=== PATIENT | male | born 1965 | race Caucasian/White ===

== ENCOUNTER 2016-12-22 19:21 | Inpatient (IN) ==
[2016-12-22 19:53] LABS: Bilirubin,Urine Small (Negative); Blood,Urine Negative (Negative); Clarity,Urine Clear (Clear); Color,Urine Yellow (Yellow); Glucose,Urine (UA) Normal (Normal); Ketones,Urine Trace mg/dL (Negative); Leukocyte Esterase,Urine Negative (Negative); Nitrite,Urine Negative (Negative); Protein,Urine 30 mg/dL (Neg-Trace); Specific Gravity,Urine 1.025 (1.010-1.025); Urobilinogen,Urine Normal (Normal)
[2016-12-22 19:56] LABS: Bacteria,Urine None Seen per hpf (None-Few); Hyaline Casts,Urine Moderate per lpf (None-Few); Squamous Epithelial Cell,Urine Many per lpf (None-Few); WBC,Urine 0-3 per hpf (0-3)
[2016-12-22 20:43] LABS: Basophils # 0.1 K/mcL (0.0-0.2); Basophils % 0.6 %; Eosinophils # 0.2 K/mcL (0.0-0.6); Eosinophils % 1.6 %; Hematocrit 45.5 % (37.5-50.1); Hemoglobin 15.8 g/dL (12.9-16.9); Immature Granulocytes % 0.3 % (0-4); Lymphocytes # 1.5 K/mcL (0.6-4.6); Lymphocytes % 13.5 %; Mean Corpuscular HGB Conc 34.7 g/dL (31.6-35.5); Mean Corpuscular Hemoglobin 30.9 pg (28.0-33.3); Mean Platelet Volume 9.9 fL (9.4-12.4); Monocytes # 0.5 K/mcL (0.0-1.3); Monocytes % 4.4 %; Neutrophils # 8.6 K/mcL (1.6-8.9); Platelet Count 226 K/mcL (140-400); Red Blood Count 5.11 M/mcL (4.19-5.50); Red Cell Distribution Width 13.5 % (11.5-14.5); Segmented Neutrophils % 79.6 %
[2016-12-22] MEDS ORDERED: *HR* Morphine 2 MG/ML SYRINGE IV ONE (20:55)
[2016-12-22] MEDS ORDERED: Ondansetron 4 MG/2 ML VIAL IV ONE (20:55)
--- NOTE | 2016-12-22 20:55 | Emergency Department Note ---
Disposition Clinical Impression: Small bowel obstruction, Abdominal pain, Bradycardia Disposition: Admitted As Inpatient Condition: Good Referrals: NO,PCP [Non-Partnered Physician] - Forms: Work/School Release, ED Satisfaction Letter Time of Disposition: 22:26 Abdominal Pain HPI - General Chief Complaint: ED Abdominal Pain Stated Complaint: belly pain Time Seen by Provider: 12/22/16 20:52 Source: patient, EMS Mode of arrival: EMS Limitations: no limitations Nursing Notes Reviewed: Yes Vital Signs Reviewed: Yes - History of Present Illness HPI Narrative: This is a 51-year-old male who presents with left lower abdominal pain starting today. Patient had one episode of associated nausea and vomiting. Patient denies any diarrhea, bloody stools, or urinary symptoms. Patient's not having any chest pain or shortness of breath. Patient has had his gallbladder removed but no other abdominal surgeries. Pt Subjective Complaint: abdominal pain Onset (ago): hour(s) (started today) Pain Scale: 9 - Related Data Allergies Allergy/AdvReac Type Severity Reaction Status Date / Time No Known Allergies Allergy Verified 12/22/16 19:32 All systems ED: reviewed and negative except as stated. Constitutional: Denies: fever, chills, weakness, weight change Eyes: Denies: eye pain, eye discharge, vision change ENT ED: Denies: ear pain, throat pain, dental pain, hearing loss, epistaxis, congestion, dysphagia Cardiovascular: Denies: chest pain, palpitations, dyspnea on exertion, edema, syncope Respiratory: Denies: cough, dyspnea, wheezes, hemoptysis, stridor Gastrointestinal: Reports: abdominal pain, nausea, vomiting. Denies: diarrhea, constipation, hematemesis, melena, hematochezia Genitourinary: Denies: urgency, dysuria, frequency, hematuria Musculoskeletal: Denies: back pain, neck pain, arthralgia, myalgia Integumentary: Denies: rash, abrasion, lesions Neurological: Denies: headache, weakness, numbness, paresthesias, confusion, abnormal gait, vertigo Psychiatric: Denies: anxiety, depression, suicidal thoughts, homicidal thoughts , auditory hallucinations, visual hallucinations Endocrine: Denies: fatigue Hematological/Lymphatic: Denies: easy bleeding, easy bruising Allergic/Immunologic: Denies: facial swelling, urticaria Abdominal Pain PMH - Past Medical History Medical history: Reports: no medical history Male Surgical History: Reports: cholecystectomy, LE stent(s), other Psychiatric history: Reports: depression - Social History Smoking status: Current every day smoker Alcohol use: Reports: occasionally Drug use: Reports: none Physical Exam - General Limitations: no limitations General appearance: alert, in no apparent distress - Head Head exam: atraumatic, normocephalic, normal inspection - Eye Eye exam: Present: normal appearance, PERRL, EOMI - ENT ENT exam: normal exam, normal oropharynx, mucous membranes moist - Expanded ENT Exam External ear exam: Present: normal external inspection Mouth exam: Present: normal external inspection Teeth exam: Present: normal inspection Throat exam: Present: normal inspection - Neck Neck exam: Present: normal inspection, full ROM, trachea midline - Chest Chest inspection: Present: normal inspection, symmetric chest wall rise - Respiratory Respiratory exam: Present: normal lung sounds bilaterally - Cardiovascular Cardiovascular exam: Present: normal rhythm, bradycardia, normal heart sounds - Abdominal Exam Abdominal exam: Present: soft, tenderness. Absent: distention, guarding, rebound, rigidity Abdominal tenderness: Present: LLQ, moderate - Extremities Exam Extremities exam: Present: normal inspection, full ROM. Absent: tenderness, pedal edema - Expanded Upper Extremity Exam Shoulder exam: Present: normal inspection, full ROM Arm exam: Present: normal inspection, full ROM Elbow exam: Present: normal inspection, full ROM Forearm/Wrist exam: Present: normal inspection, full ROM Hand exam: Present: normal inspection, full ROM Vascular exam: Normal: capillary refill, radial pulse - Expanded Lower Extremity Exam Hip/Pelvis exam: Present: normal inspection, full ROM Upper leg exam: Present: normal inspection, full ROM Knee exam: Present: normal inspection, full ROM Lower leg exam: Present: normal inspection, full ROM Ankle exam: Present: normal inspection, full ROM Foot/toe exam: Present: normal inspection, full ROM Neurovascular/Tendon exam: Absent: motor deficit, sensory deficit, tendon deficit - Back Exam Back exam: Present: normal inspection, full ROM. Absent: tenderness - Neurological Exam Neurological exam: Present: alert, oriented X3 - Expanded Neurological Exam Patient oriented to: Present: person, place, time Coma Scale Eye Opening: Spontaneous Coma Scale Motor Response: Obeys Commands Coma Scale Verbal Response: Oriented Coma Scale Total: 15 - Psychiatric Psychiatric exam: Present: normal affect, normal mood - Skin Skin exam: Present: warm, dry, intact, normal color Course - Consultations Consultation #1: I spoke with Dr. Lamar he will admit the pt. Time: 22:32 Vital Signs Temperature 97.7 F 12/22/16 19:32 Pulse Rate 56 12/22/16 19:32 Respiratory Rate 20 12/22/16 19:32 Blood Pressure 156/85 12/22/16 19:32 O2 Sat by Pulse Oximetry 99 12/22/16 19:32 Temperature 97.7 F 12/22/16 19:32 Pulse Rate 53 12/22/16 21:44 Respiratory Rate 16 12/22/16 21:44 Blood Pressure 130/78 12/22/16 21:44 O2 Sat by Pulse Oximetry 99 12/22/16 21:44 Oxygen Delivery Oxygen Delivery Room Air Abdominal Pain - Medical Records Medical records reviewed: Yes I reviewed the patient's medical records. - Lab Data Lab results reviewed: Yes I reviewed the patient's lab results. Result diagrams: 12/22/16 20:39 12/22/16 20:39 Lab Results 12/22/16 12/22/16 12/22/16 Range/Units 19:45 20:39 20:39 WBC 10.8 (4.3-11.1) K/mcL RBC 5.11 (4.19-5.50) M/mcL Hgb 15.8 (12.9-16.9) g/dL Hct 45.5 (37.5-50.1) % MCV 89.0 (83.0-100.0) fL MCH 30.9 (28.0-33.3) pg MCHC 34.7 (31.6-35.5) g/dL RDW 13.5 (11.5-14.5) % Plt Count 226 (140-400) K/mcL MPV 9.9 (9.4-12.4) fL Immature Gran % 0.3 (0-4) % Seg Neutrophils % 79.6 % Lymphocytes % 13.5 % Monocytes % 4.4 % Eosinophils % 1.6 % Basophils % 0.6 % Neutrophils # 8.6 (1.6-8.9) K/mcL Lymphocytes # 1.5 (0.6-4.6) K/mcL Monocytes # 0.5 (0.0-1.3) K/mcL Eosinophils # 0.2 (0.0-0.6) K/mcL Basophils # 0.1 (0.0-0.2) K/mcL Sodium 140 (136-145) mEq/L Potassium 4.5 (3.5-4.5) mEq/L Chloride 106 (98-109) mEq/L Carbon Dioxide 20 (19-29) mEq/L BUN 13 (8-26) mg/dL Creatinine 1.16 (0.72-1.25) mg/dL Est GFR ( Amer) > 60 (> 60) Est GFR (Non-Af Amer) > 60 (> 60) BUN/Creatinine Ratio 11 (6-26) Glucose 105 H (70-99) mg/dL Calculated Osmolality 290 (280-300) Calcium 10.0 (8.6-10.8) mg/dL Total Bilirubin 0.6 (0.2-1.2) mg/dL Direct Bilirubin 0.2 (0.0-0.5) mg/dL Indirect Bilirubin 0.4 (0.0-1.2) mg/dL AST 33 (5-34) Units/L ALT 20 (0-55) Units/L Alkaline Phosphatase 72 (38-126) Units/L Serum Total Protein 8.0 (6.0-8.3) g/dL Albumin 4.3 (3.5-5.0) g/dL Globulin 3.7 H (2.4-3.5) g/dL Albumin/Globulin Ratio 1.2 (1.1-2.2) Amylase 76 (25-125) Units/L Lipase 30 (8-78) Units/L Urine Color Yellow (Yellow) Urine Clarity Clear (Clear) Urine pH 6.0 (5.0-8.0) pH Units Ur Specific [place] 1.025 (1.010-1.025) Urine Protein 30 H (Neg-Trace) mg/dL Urine Glucose (UA) Normal (Normal) mg/dL Urine Ketones Trace H (Negative) mg/dL Urine Blood Negative (Negative) Urine Nitrite Negative (Negative) Urine Bilirubin Small H (Negative) Urine Urobilinogen Normal (Normal) mg/dL Ur Leukocyte Esterase Negative (Negative) Urine Microscopic RBC 3-5 H (0-3) per hpf Urine Microscopic WBC 0-3 (0-3) per hpf Ur Squamous Epith Cells Many H (None-Few) per lpf Urine Bacteria None Seen (None-Few) per hpf Hyaline Casts Moderate H (None-Few) per lpf Ur Culture Indicated? NO (NO) - Radiology Data Radiology results reviewed: Yes I reviewed the patient's radiology results. - EKG Data EKG attestation: Yes I reviewed and interpreted this EKG. EKG shows normal: sinus rhythm Rate: bradycardia (49) Rhythm: NSR [place]/QRS: normal Interpretation: no acute changes, normal EKG
[2016-12-22 20:58] LABS: Alanine Aminotransferase 20 Units/L (0-55); Albumin 4.3 g/dL (3.5-5.0); Albumin/Globulin Ratio 1.2 (1.1-2.2); Alkaline Phosphatase 72 Units/L (38-126); Amylase 76 Units/L (25-125); Aspartate Amino Transferase 33 Units/L (5-34); BUN/Creatinine Ratio 11 (6-26); Bilirubin,Direct 0.2 mg/dL (0.0-0.5); Bilirubin,Indirect 0.4 mg/dL (0.0-1.2); Bilirubin,Total 0.6 mg/dL (0.2-1.2); Blood Urea Nitrogen 13 mg/dL (8-26); Carbon Dioxide 20 mEq/L (19-29); Chloride 106 mEq/L (98-109); Globulin 3.7 g/dL (2.4-3.5); Glucose 105 mg/dL (70-99); Lipase 30 Units/L (8-78); Osmolality,Calculated 290 (280-300); Potassium 4.5 mEq/L (3.5-4.5); Sodium 140 mEq/L (136-145); eGFR For African Americans > 60 (> 60); eGFR For Non-African Americans > 60 (> 60)
[2016-12-22] MEDS: 0.9 % Sodium Chloride 1,000 ML IV SCH (21:22)
[2016-12-23] MEDS: Ondansetron 4 MG/2 ML VIAL IVP PRN ×3 (02:14→15:31)
[2016-12-23] MEDS: *HR* HYDROmorphone (PF) 1 MG/ML SYRINGE IVP PRN ×6 (02:14→23:35)
[2016-12-23] MEDS: 0.9 % Sodium Chloride 1,000 ML IVC SCH ×3 (02:15→23:31)
[2016-12-23 06:04] LABS: Basophils % 0.4 %; Eosinophils % 0.2 %; Hematocrit 39.3 % (37.5-50.1); Immature Granulocytes % 0.3 % (0-4); Lymphocytes # 1.1 K/mcL (0.6-4.6); Lymphocytes % 11.7 %; Mean Corpuscular HGB Conc 35.6 g/dL (31.6-35.5); Mean Corpuscular Hemoglobin 31.3 pg (28.0-33.3); Mean Corpuscular Volume 87.9 fL (83.0-100.0); Mean Platelet Volume 10.3 fL (9.4-12.4); Monocytes # 0.3 K/mcL (0.0-1.3); Neutrophils # 8.1 K/mcL (1.6-8.9); Platelet Count 196 K/mcL (140-400); Red Blood Count 4.47 M/mcL (4.19-5.50); Red Cell Distribution Width 13.5 % (11.5-14.5); Segmented Neutrophils % 84.4 %
[2016-12-23 06:13] LABS: BUN/Creatinine Ratio 13 (6-26); Blood Urea Nitrogen 11 mg/dL (8-26); Calcium 9.1 mg/dL (8.6-10.8); Carbon Dioxide 21 mEq/L (19-29); Chloride 108 mEq/L (98-109); Glucose 112 mg/dL (70-99); Osmolality,Calculated 292 (280-300); Potassium 3.8 mEq/L (3.5-4.5); Sodium 141 mEq/L (136-145); eGFR For African Americans > 60 (> 60); eGFR For Non-African Americans > 60 (> 60)
--- NOTE | 2016-12-23 09:09 | General Surg History&Physical ---
<Bruce Donis - Last Filed: 12/24/16 10:03> Date of Encounter: 12/24/16 Time of Encounter: 08:40 Assessment and Plan (1) Small bowel obstruction Current Visit: Yes Status: Acute Concern for SBO on CT abdomen. Conservative measures at this time: NPO w/ bowel rest-- may have 300cc ice chips per shift Consider NG placement if continued emesis, continue zofran. Supportive care/pain control (2) Depression Current Visit: Yes Status: Chronic Patient notes depression since his 's passing approx 3 years ago. Reviewing outpatient records, appears was started on Prozac in Sep 2016. States not on any medication currently. (3) Malnutrition Current Visit: Yes Status: Chronic Likely secondary to depression, with poor appetite. Currently NPO with bowel rest. Will continue to observe and monitor. Nutrition consulted, recommending TPN if patient is unable to resume PO diet in the next few days. (4) HTN (hypertension) Current Visit: Yes Status: Chronic Hydralazine 10mg Q6H scheduled for hypertension. (5) HLD (hyperlipidemia) Current Visit: Yes Status: Chronic (6) PAD (peripheral artery disease) Current Visit: Yes Status: Chronic History of bilateral iliac stents in 2010. Patient on Plavix, currently held. On heparin for DVT prophylaxis. (7) Nicotine dependence Current Visit: Yes Status: Acute Nicotine patch daily. (8) DVT prophylaxis Current Visit: Yes Status: Acute heparin 5,000 Q12H for DVT prophylaxis History of Present Illness Chief complaint: abdominal pain HPI: Mr. Knox is a 51 year old male that presented to the ED for abdominal pain x 1 day with N/V just since presentation to the hospital. Last episode of emesis at 3AM today. Patient's last BM was diarrhea yesterday at 2pm. Patient states his pain in suprapubic, originally a 10/10 in severity and a sharp stabbing pain. Currently a 5/10 with pain medication. Patient denies any fevers chills, changes in appetite, dysuria. Past Med Surg Social Fam HX - Past Medical History Medical history: COPD, GERD, hyperlipidemia, hypertension, peripheral artery disease Psychiatric history: anxiety, depression - Past Surgical History Surgical History: cholecystectomy, vascular surgery (bilateral iliac stent placement 2010) - Social History Smoking Status: Current every day smoker Packs per day: 1 1/2 Smokeless Tobacco Status: No Alcohol use: occasionally (weekend) Drug use: none - Family History Mother Adopted: No Family Member Ethnicity: Non- Living Status: Age at : 55 Cause of : parkinsons Hx Family Respiratory Disorders: No Hx Family Cancer: No Hx Family GI Disorders: No Hx Family Genitourinary Disorders: No Hx Family Endocrine Disorder: No Hx Family Musculoskeletal Disorders: No (carpal tunnel) Hx Family Neuromuscular Disorders: Yes (parkinsons) Hx Family Neurologic Disorders: Yes (parkinsons) Hx Family HEENT Disorders: No Hx Family Reproductive Disorders: No Hx Family Psychosocial Disorders: No Hx Family Medical Disorders: No Medications and Allergies Atorvastatin [Lipitor] 40 mg PO HS 12/23/16 [History] Citalopram [CeleXA] 20 mg PO DAILY 12/23/16 [History] Clopidogrel [Plavix] 75 mg PO DAILY 12/23/16 [History] Lansoprazole [Prevacid] 30 mg PO DAILY 12/23/16 [History] Latanoprost [Xalatan] 1 drop OP QPM 12/23/16 [History] Lisinopril/Hydrochlorothiazide [Zestoretic 10-12.5 mg Tablet] 1 each PO DAILY [History] Metoprolol [Lopressor] 25 mg PO BID 12/23/16 [History] Timolol Maleate 0.25% 1 drop OP DAILY 12/23/16 [History] Tizanidine HCl [Tizanidine HCl] 4 mg PO HS PRN 12/23/16 [History] Allergies No Known Allergies Allergy (Verified 12/23/16 07:41) Review of Systems All systems PM: A 10-system review of systems was performed and is negative for pertinent findings except as documented above in the HPI. - Constitutional no chills, no fever(s), no weakness - EENT Eyes: left: decreased vision Nose, mouth and throat: no dysphagia, no neck pain, no sore throat - Cardiovascular no chest pain, no dyspnea, no edema, no syncope - Respiratory cough, no dyspnea - Gastrointestinal abdominal pain, diarrhea, nausea, vomiting - Genitourinary no dysuria, no flank pain - Musculoskeletal no numbness, no tingling - Integumentary no rash - Neurological no abnormal speech, no confusion, no weakness General Surgery Exam Initial Vital Signs Temp Pulse Resp BP Pulse Ox 97.7 F 56 20 156/85 99 12/22/16 19:32 12/22/16 19:32 12/22/16 19:32 12/22/16 19:32 12/22/16 19:32 - General physical appearance well developed, well nourished, no distress - Eyes other (exotropia of left eye), PERRL, normal ocular movement - ENT normal nares, normal mucosa, no congestion, atraumatic, normocephalic - Neck no masses, trachea midline, no lymphadectomy - Respiratory normal expansion, normal respiratory effort, clear to auscultation - Cardiovascular Cardiovascular exam: Present: RRR, 15, 16 - Abdomen Abdomen general surgery: Present: bowel sounds present (hypoactive), soft, non tender - Integumentary Integumentary general surgery: Present: warm and dry, no abnormal pigmentation - Neurologic Present: CN 2-12 grossly intact - Psychiatric Psychiatric general surgery: Present: appropriate, oriented to person, oriented to place, oriented to time, speech is normal, memory intact Results - Labs 12/24/16 05:40 12/24/16 05:40 Abnormal lab results MCHC 35.6 g/dL (31.6-35.5) H 12/23/16 05:00 Glucose 112 mg/dL (70-99) H 12/23/16 05:00 POC Glucose 120 (58-89) H 12/23/16 05:48 Globulin 3.7 g/dL (2.4-3.5) H 12/22/16 20:39 Urine Protein 30 mg/dL (Neg-Trace) H 12/22/16 19:45 Urine Ketones Trace mg/dL (Negative) H 12/22/16 19:45 Urine Bilirubin Small (Negative) H 12/22/16 19:45 Urine Microscopic RBC 3-5 per hpf (0-3) H 12/22/16 19:45 Ur Squamous Epith Cells Many per lpf (None-Few) H 12/22/16 19:45 Hyaline Casts Moderate per lpf (None-Few) H 12/22/16 19:45 Diabetes panel 12/23/16 Range/Units 05:00 Sodium 141 (136-145) mEq/L Potassium 3.8 (3.5-4.5) mEq/L Chloride 108 (98-109) mEq/L Carbon Dioxide 21 (19-29) mEq/L BUN 11 (8-26) mg/dL Creatinine 0.86 (0.72-1.25) mg/dL Glucose 112 H (70-99) mg/dL Calcium 9.1 (8.6-10.8) mg/dL Calcium panel 12/23/16 Range/Units 05:00 Calcium 9.1 (8.6-10.8) mg/dL Pituitary panel 12/23/16 Range/Units 05:00 Sodium 141 (136-145) mEq/L Potassium 3.8 (3.5-4.5) mEq/L Chloride 108 (98-109) mEq/L Carbon Dioxide 21 (19-29) mEq/L BUN 11 (8-26) mg/dL Creatinine 0.86 (0.72-1.25) mg/dL Glucose 112 H (70-99) mg/dL Calcium 9.1 (8.6-10.8) mg/dL Adrenal panel 12/23/16 Range/Units 05:00 Sodium 141 (136-145) mEq/L Potassium 3.8 (3.5-4.5) mEq/L Chloride 108 (98-109) mEq/L Carbon Dioxide 21 (19-29) mEq/L BUN 11 (8-26) mg/dL Creatinine 0.86 (0.72-1.25) mg/dL Glucose 112 H (70-99) mg/dL Calcium 9.1 (8.6-10.8) mg/dL All other labs normal. <Jose Lamar - Last Filed: 12/25/16 07:45> Date of Encounter: 12/23/16 Assessment and Plan (1) Abdominal pain Current Visit: Yes Status: Acute The assessment and plan as outlined above was discussed with the patient and/or family members who expressed understanding and agreement. All questions were answered. Nausea and vomitting with diffuse mild abdominal pain. CT demonstrates partial bowel obstruction with dilated proximal small bowel. Close observation and follow with hydration and physical examination Qualifiers: Abdominal location: generalized Qualified Code(s): R10.84 - Generalized abdominal pain History of Present Illness HPI: Mr. Knox is a 51 year old male Review of Systems All systems PM: A 10-system review of systems was performed and is negative for pertinent findings except as documented above in the HPI. General Surgery Exam Initial Vital Signs Temp Pulse Resp BP Pulse Ox 97.7 F 56 20 156/85 99 12/22/16 19:32 12/22/16 19:32 12/22/16 19:32 12/22/16 19:32 12/22/16 19:32 - General physical appearance well developed, well nourished, no distress - Respiratory normal expansion, normal respiratory effort, clear to percussion, clear to auscultation - Cardiovascular Cardiovascular exam: Present: RRR, 15, 16 - Abdomen Abdomen general surgery: Present: bowel sounds present, tender Abdominal Tenderness: Present: diffusely (mild) - Neurologic Present: CN 2-12 grossly intact, normal coordination, normal sensation - Psychiatric Psychiatric general surgery: Present: appropriate, oriented to person, oriented to place, oriented to time, speech is normal, memory intact Results - Labs 12/25/16 07:03 12/25/16 07:03 Abnormal lab results RBC 4.17 M/mcL (4.19-5.50) L 12/25/16 07:03 Hct 37.3 % (37.5-50.1) L 12/25/16 07:03 Carbon Dioxide 15 mEq/L (19-29) L 12/25/16 07:03 Calcium 8.5 mg/dL (8.6-10.8) L 12/25/16 07:03 Globulin 3.7 g/dL (2.4-3.5) H 12/22/16 20:39 Urine Protein 30 mg/dL (Neg-Trace) H 12/22/16 19:45 Urine Ketones Trace mg/dL (Negative) H 12/22/16 19:45 Urine Bilirubin Small (Negative) H 12/22/16 19:45 Urine Microscopic RBC 3-5 per hpf (0-3) H 12/22/16 19:45 Ur Squamous Epith Cells Many per lpf (None-Few) H 12/22/16 19:45 Hyaline Casts Moderate per lpf (None-Few) H 12/22/16 19:45 Diabetes panel 12/25/16 Range/Units 07:03 Sodium 137 (136-145) mEq/L Potassium 3.7 (3.5-4.5) mEq/L Chloride 108 (98-109) mEq/L Carbon Dioxide 15 L (19-29) mEq/L BUN 13 (8-26) mg/dL Creatinine 0.80 (0.72-1.25) mg/dL Glucose 78 (70-99) mg/dL Calcium 8.5 L (8.6-10.8) mg/dL Calcium panel 12/25/16 Range/Units 07:03 Calcium 8.5 L (8.6-10.8) mg/dL Pituitary panel 12/25/16 Range/Units 07:03 Sodium 137 (136-145) mEq/L Potassium 3.7 (3.5-4.5) mEq/L Chloride 108 (98-109) mEq/L Carbon Dioxide 15 L (19-29) mEq/L BUN 13 (8-26) mg/dL Creatinine 0.80 (0.72-1.25) mg/dL Glucose 78 (70-99) mg/dL Calcium 8.5 L (8.6-10.8) mg/dL Adrenal panel 12/25/16 Range/Units 07:03 Sodium 137 (136-145) mEq/L Potassium 3.7 (3.5-4.5) mEq/L Chloride 108 (98-109) mEq/L Carbon Dioxide 15 L (19-29) mEq/L BUN 13 (8-26) mg/dL Creatinine 0.80 (0.72-1.25) mg/dL Glucose 78 (70-99) mg/dL Calcium 8.5 L (8.6-10.8) mg/dL All other labs normal.
--- NOTE | 2016-12-23 11:19 | Electrocardiograph Report ---
[facility] Test Date: 2016-12-22 Pat Name: Juan F Knox Department: 105 Room: 3A44 Gender: M Stain Sprayer: EDWARD : 1965 Requested By: Miriam Hemphill Order Number: [id number] Reading MD: Merissa Gold Measurements Intervals [place] Rate: 49 P: 37 OR: 129 QRS: 5 QRSD: 103 T: 27 QT: 420 QTc: 390 Interpretive Statements SINUS BRADYCARDIA Electronically Signed On 12-23-16 11:18:25 EST by Merissa Gold
[2016-12-23] MEDS: Nicotine 14 MG PATCH.TD24 TD SCH (12:07)
[2016-12-23] MEDS: *HR* Heparin 5,000 UNIT/ML VIAL SQ SCH (17:13)
[2016-12-23] MEDS: 0.9 % Sodium Chloride 1,000 ML IV SCH (19:58)
[2016-12-24] MEDS: *HR* HYDROmorphone (PF) 1 MG/ML SYRINGE IVP PRN ×4 (03:34→21:06)
[2016-12-24] MEDS: *HR* Heparin 5,000 UNIT/ML VIAL SQ SCH ×2 (05:50→18:01)
[2016-12-24 06:01] LABS: Basophils % 0.3 %; Eosinophils % 0.1 %; Hematocrit 40.5 % (37.5-50.1); Immature Granulocytes % 0.5 % (0-4); Lymphocytes # 1.4 K/mcL (0.6-4.6); Lymphocytes % 9.5 %; Mean Corpuscular HGB Conc 34.6 g/dL (31.6-35.5); Mean Corpuscular Volume 89.6 fL (83.0-100.0); Mean Platelet Volume 10.1 fL (9.4-12.4); Monocytes # 0.8 K/mcL (0.0-1.3); Monocytes % 5.4 %; Neutrophils # 12.4 K/mcL (1.6-8.9); Platelet Count 194 K/mcL (140-400); Red Blood Count 4.52 M/mcL (4.19-5.50); Red Cell Distribution Width 13.8 % (11.5-14.5); Segmented Neutrophils % 84.2 %
[2016-12-24 06:17] LABS: BUN/Creatinine Ratio 17 (6-26); Blood Urea Nitrogen 15 mg/dL (8-26); Carbon Dioxide 18 mEq/L (19-29); Chloride 109 mEq/L (98-109); Glucose 84 mg/dL (70-99); Osmolality,Calculated 298 (280-300); Potassium 3.9 mEq/L (3.5-4.5); Sodium 144 mEq/L (136-145); eGFR For African Americans > 60 (> 60); eGFR For Non-African Americans > 60 (> 60)
[2016-12-24] MEDS: Nicotine 14 MG PATCH.TD24 TD SCH (07:51)
[2016-12-24] MEDS: Pantoprazole 40 MG VIAL IVP SCH (07:51)
[2016-12-24] MEDS: 0.9 % Sodium Chloride 1,000 ML IVC SCH ×2 (07:53→21:20)
--- NOTE | 2016-12-24 10:05 | General Surgery Progress Note ---
<Bruce Donis - Last Filed: 12/24/16 10:02> Date of Encounter: 12/24/16 Time of Encounter: 07:15 - Assessment and Plan (1) Small bowel obstruction Current Visit: Yes Status: Acute Concern for SBO on CT abdomen. Ordered small bowel follow through this AM. May advance diet based on small bowel study results. Conservative measures at this time: NPO w/ bowel rest-- may have 300cc ice chips per shift No further emesis, continue zofran prn Supportive care/pain control (2) Depression Current Visit: Yes Status: Chronic Patient notes depression since his 's passing approx 3 years ago. Reviewing outpatient records, appears was started on Prozac in Sep 2016. Not on any medication currently. Qualifiers: Depression Type: unspecified Qualified Code(s): F32.9 - Major depressive disorder, single episode, unspecified (3) Malnutrition Current Visit: Yes Status: Chronic Likely secondary to depression, with poor appetite, poor PO intake. Currently NPO with bowel rest. Will continue to observe and monitor. Nutrition consulted, recommending TPN if patient is unable to resume PO diet in the next few days. (4) HTN (hypertension) Current Visit: Yes Status: Chronic Hydralazine 10mg Q6H scheduled for hypertension. Qualifiers: Hypertension type: essential hypertension Qualified Code(s): I10 - Essential (primary) hypertension (5) HLD (hyperlipidemia) Current Visit: Yes Status: Chronic Qualifiers: Hyperlipidemia type: unspecified Qualified Code(s): E78.5 - Hyperlipidemia , unspecified (6) PAD (peripheral artery disease) Current Visit: Yes Status: Chronic History of bilateral iliac stents in 2010. Patient on Plavix, currently held. On heparin for DVT prophylaxis. (7) Nicotine dependence Current Visit: Yes Status: Acute Nicotine patch daily. (8) DVT prophylaxis Current Visit: Yes Status: Acute heparin 5,000 Q12H for DVT prophylaxis Subjective Patient reports: no new complaints, feels better, still having pain, pain is less, no flatus, no bowel movement, afebrile, other (no further vomiting) Objective Vital Signs - Last 8 Hours Temp Pulse Resp BP Pulse Ox 12/24/16 07:31 98.6 F 80 16 139/66 93 L 12/24/16 04:15 98.8 F 76 17 155/73 93 L Intake and Output 12/23/16 12/24/16 12/24/16 23:59 07:59 15:59 Intake Total 1120 / 1120 1000 / 1000 Output Total 300 / 300 200 / 200 Balance 820 / 820 800 / 800 Intake: IV Fluids 1000 / 1000 1000 / 1000 0.9 % Sodium Chloride 1, 1000 / 1000 1000 / 1000 000 ML @ 100 mls/hr IVC . Q10H [facility] Rx#:[id number] Oral 120 / 120 Output: Urine 300 / 300 200 / 200 Other: Meal NPO Weight 55.12 kg Blood Glucose* 94 83 Patient Weight 12/24/16 23:59 Weight 55.12 kg - General physical appearance well developed, no distress - Eyes other (exotropia of left eye), normal ocular movement - ENT normal mucosa, atraumatic, normocephalic - Neck Neck exam: trachea midline - Respiratory normal respiratory effort, clear to auscultation - Cardiovascular Cardiovascular exam: Present: RRR - Abdomen Abdomen: Present: bowel sounds present (high pitch, hypoactive), soft, non tender. Absent: distended, guarding - Integumentary no rash - Neurologic CN 2-12 grossly intact - Psychiatric oriented to time, oriented to person, oriented to place, speech is normal, memory intact - Labs 12/24/16 05:40 12/24/16 05:40 Diabetes panel 12/24/16 Range/Units 05:40 Sodium 144 (136-145) mEq/L Potassium 3.9 (3.5-4.5) mEq/L Chloride 109 (98-109) mEq/L Carbon Dioxide 18 L (19-29) mEq/L BUN 15 (8-26) mg/dL Creatinine 0.88 (0.72-1.25) mg/dL Glucose 84 (70-99) mg/dL Calcium 9.0 (8.6-10.8) mg/dL Calcium panel 12/24/16 Range/Units 05:40 Calcium 9.0 (8.6-10.8) mg/dL Pituitary panel 12/24/16 Range/Units 05:40 Sodium 144 (136-145) mEq/L Potassium 3.9 (3.5-4.5) mEq/L Chloride 109 (98-109) mEq/L Carbon Dioxide 18 L (19-29) mEq/L BUN 15 (8-26) mg/dL Creatinine 0.88 (0.72-1.25) mg/dL Glucose 84 (70-99) mg/dL Calcium 9.0 (8.6-10.8) mg/dL Adrenal panel 12/24/16 Range/Units 05:40 Sodium 144 (136-145) mEq/L Potassium 3.9 (3.5-4.5) mEq/L Chloride 109 (98-109) mEq/L Carbon Dioxide 18 L (19-29) mEq/L BUN 15 (8-26) mg/dL Creatinine 0.88 (0.72-1.25) mg/dL Glucose 84 (70-99) mg/dL Calcium 9.0 (8.6-10.8) mg/dL - VTE Documentation of Mechanical Device: Intermittent pneumatic compression device Consult Discharge Plan - Plan Referrals: Stephane Askew DO [Primary Care Provider] - <Jose Lamar - Last Filed: 12/25/16 12:32> Date of Encounter: 12/24/16 Time of Encounter: 07:15 - Assessment and Plan (1) Abdominal pain Current Visit: Yes Status: Acute Qualifiers: Qualified Code(s): R10.84 - Generalized abdominal pain Objective Vital Signs - Last 8 Hours Temp Pulse Resp BP Pulse Ox 12/25/16 10:00 98.6 F 71 15 175/80 95 12/25/16 06:42 98.4 F 76 14 141/70 94 L Intake and Output 12/24/16 12/25/16 12/25/16 23:59 07:59 15:59 Intake Total 639 / 639 325 / 325 0 / 0 Output Total 375 / 375 400 / 400 0 / 0 Balance 264 / 264 -75 / -75 0 / 0 Intake: IV Fluids 639 / 639 325 / 325 0.9 % Sodium Chloride 1, 639 / 639 325 / 325 000 ML @ 100 mls/hr IVC . Q10H [facility] Rx#:[id number] Oral 0 / 0 0 / 0 Output: Urine 375 / 375 400 / 400 0 / 0 Other: Meal NPO NPO NPO Breakfast Weight 56.08 kg Blood Glucose* 96 88 81 Patient Weight 12/25/16 23:59 Weight 56.08 kg - Labs 12/25/16 07:03 12/25/16 07:03 Diabetes panel 12/25/16 Range/Units 07:03 Sodium 137 (136-145) mEq/L Potassium 3.7 (3.5-4.5) mEq/L Chloride 108 (98-109) mEq/L Carbon Dioxide 15 L (19-29) mEq/L BUN 13 (8-26) mg/dL Creatinine 0.80 (0.72-1.25) mg/dL Glucose 78 (70-99) mg/dL Calcium 8.5 L (8.6-10.8) mg/dL Calcium panel 12/25/16 Range/Units 07:03 Calcium 8.5 L (8.6-10.8) mg/dL Pituitary panel 12/25/16 Range/Units 07:03 Sodium 137 (136-145) mEq/L Potassium 3.7 (3.5-4.5) mEq/L Chloride 108 (98-109) mEq/L Carbon Dioxide 15 L (19-29) mEq/L BUN 13 (8-26) mg/dL Creatinine 0.80 (0.72-1.25) mg/dL Glucose 78 (70-99) mg/dL Calcium 8.5 L (8.6-10.8) mg/dL Adrenal panel 12/25/16 Range/Units 07:03 Sodium 137 (136-145) mEq/L Potassium 3.7 (3.5-4.5) mEq/L Chloride 108 (98-109) mEq/L Carbon Dioxide 15 L (19-29) mEq/L BUN 13 (8-26) mg/dL Creatinine 0.80 (0.72-1.25) mg/dL Glucose 78 (70-99) mg/dL Calcium 8.5 L (8.6-10.8) mg/dL - Attending Attestation I examined this patient and my medical decision-making was reviewed with the KEYSMITH/PA/Advanced Practice Nurse/Resident Physician. I agree with the documented findings, disposition and treatment plan as described except to the extent set forth below. Jose Lamar MD
[2016-12-24] MEDS: Ondansetron 4 MG/2 ML VIAL IVP PRN (12:34)
[2016-12-24] MEDS: 0.9 % Sodium Chloride 1,000 ML IV SCH (21:04)
[2016-12-25] MEDS: 0.9 % Sodium Chloride 1,000 ML IVC SCH ×3 (00:16→21:37)
[2016-12-25] MEDS: *HR* HYDROmorphone (PF) 1 MG/ML SYRINGE IVP PRN ×3 (03:37→10:47)
[2016-12-25] MEDS: *HR* Heparin 5,000 UNIT/ML VIAL SQ SCH ×2 (05:48→18:42)
[2016-12-25 07:15] LABS: Basophils % 0.4 %; Eosinophils % 0.3 %; Hematocrit 37.3 % (37.5-50.1); Hemoglobin 13.2 g/dL (12.9-16.9); Immature Granulocytes % 0.4 % (0-4); Immature Platelets 2.5 % (1.1-6.1); Lymphocytes # 1.8 K/mcL (0.6-4.6); Lymphocytes % 16.7 %; Mean Corpuscular HGB Conc 35.4 g/dL (31.6-35.5); Mean Corpuscular Hemoglobin 31.7 pg (28.0-33.3); Mean Corpuscular Volume 89.4 fL (83.0-100.0); Mean Platelet Volume 9.8 fL (9.4-12.4); Monocytes # 0.6 K/mcL (0.0-1.3); Monocytes % 5.1 %; Neutrophils # 8.4 K/mcL (1.6-8.9); Platelet Count 188 K/mcL (140-400); Red Blood Count 4.17 M/mcL (4.19-5.50); Red Cell Distribution Width 13.9 % (11.5-14.5); Segmented Neutrophils % 77.1 %
[2016-12-25 07:27] LABS: BUN/Creatinine Ratio 16 (6-26); Blood Urea Nitrogen 13 mg/dL (8-26); Calcium 8.5 mg/dL (8.6-10.8); Carbon Dioxide 15 mEq/L (19-29); Chloride 108 mEq/L (98-109); Glucose 78 mg/dL (70-99); Osmolality,Calculated 283 (280-300); Potassium 3.7 mEq/L (3.5-4.5); Sodium 137 mEq/L (136-145); eGFR For African Americans > 60 (> 60); eGFR For Non-African Americans > 60 (> 60)
[2016-12-25] MEDS: Pantoprazole 40 MG VIAL IVP SCH (07:49)
[2016-12-25] MEDS: Nicotine 14 MG PATCH.TD24 TD SCH (07:54)
--- NOTE | 2016-12-25 12:27 | General Surgery Progress Note ---
<Bruce Donis - Last Filed: 12/25/16 14:50> Date of Encounter: 12/25/16 Time of Encounter: 07:10 - Assessment and Plan (1) Small bowel obstruction Current Visit: Yes Status: Acute Concern for SBO on CT abdomen. More likely enteritis. Small bowel follow through incomplete. Ordered KUB this AM, no bowel obstruction. Advance diet to clear liquids. Continue zofran prn Supportive care/pain control (2) Depression Current Visit: Yes Status: Chronic Patient notes depression since his 's passing approx 3 years ago. Reviewing outpatient records, appears was started on Prozac in Sep 2016. Not on any medication currently. Qualifiers: Depression Type: unspecified Qualified Code(s): F32.9 - Major depressive disorder, single episode, unspecified (3) Malnutrition Current Visit: Yes Status: Chronic Likely secondary to depression, with poor appetite, poor PO intake. Currently NPO with bowel rest. Will continue to observe and monitor. Nutrition consulted, recommending TPN if patient is unable to resume PO diet in the next few days. (4) HTN (hypertension) Current Visit: Yes Status: Chronic Hydralazine 10mg Q6H scheduled for hypertension. Qualifiers: Hypertension type: essential hypertension Qualified Code(s): I10 - Essential (primary) hypertension (5) HLD (hyperlipidemia) Current Visit: Yes Status: Chronic Qualifiers: Hyperlipidemia type: unspecified Qualified Code(s): E78.5 - Hyperlipidemia , unspecified (6) PAD (peripheral artery disease) Current Visit: Yes Status: Chronic History of bilateral iliac stents in 2010. Patient on Plavix, currently held. On heparin for DVT prophylaxis. (7) Nicotine dependence Current Visit: Yes Status: Acute Nicotine patch daily. (8) DVT prophylaxis Current Visit: Yes Status: Acute heparin 5,000 Q12H for DVT prophylaxis Subjective Patient reports: no flatus, no bowel movement, nausea, vomiting (episode of vomiting small bowl follow through), afebrile (max temp 99.7) Objective Vital Signs - Last 8 Hours Temp Pulse Resp BP Pulse Ox 12/25/16 10:00 98.6 F 71 15 175/80 95 12/25/16 06:42 98.4 F 76 14 141/70 94 L Intake and Output 12/24/16 12/25/16 12/25/16 23:59 07:59 15:59 Intake Total 639 / 639 325 / 325 0 / 0 Output Total 375 / 375 400 / 400 0 / 0 Balance 264 / 264 -75 / -75 0 / 0 Intake: IV Fluids 639 / 639 325 / 325 0.9 % Sodium Chloride 1, 639 / 639 325 / 325 000 ML @ 100 mls/hr IVC . Q10H [facility] Rx#:[id number] Oral 0 / 0 0 / 0 Output: Urine 375 / 375 400 / 400 0 / 0 Other: Meal NPO NPO NPO Breakfast Weight 56.08 kg Blood Glucose* 96 88 81 Patient Weight 12/25/16 23:59 Weight 56.08 kg - General physical appearance well developed, well nourished, no distress - Eyes normal ocular movement - ENT normal mucosa, atraumatic, normocephalic - Neck Neck exam: trachea midline - Respiratory normal respiratory effort, clear to auscultation - Cardiovascular Cardiovascular exam: Present: RRR - Abdomen Abdomen: Present: bowel sounds present, soft, tender - Integumentary no rash - Neurologic CN 2-12 grossly intact - Psychiatric oriented to time, oriented to person, oriented to place, speech is normal, memory intact (minimally diffuse tenderness) - Labs 12/25/16 07:03 12/25/16 07:03 Diabetes panel 12/25/16 Range/Units 07:03 Sodium 137 (136-145) mEq/L Potassium 3.7 (3.5-4.5) mEq/L Chloride 108 (98-109) mEq/L Carbon Dioxide 15 L (19-29) mEq/L BUN 13 (8-26) mg/dL Creatinine 0.80 (0.72-1.25) mg/dL Glucose 78 (70-99) mg/dL Calcium 8.5 L (8.6-10.8) mg/dL Calcium panel 12/25/16 Range/Units 07:03 Calcium 8.5 L (8.6-10.8) mg/dL Pituitary panel 12/25/16 Range/Units 07:03 Sodium 137 (136-145) mEq/L Potassium 3.7 (3.5-4.5) mEq/L Chloride 108 (98-109) mEq/L Carbon Dioxide 15 L (19-29) mEq/L BUN 13 (8-26) mg/dL Creatinine 0.80 (0.72-1.25) mg/dL Glucose 78 (70-99) mg/dL Calcium 8.5 L (8.6-10.8) mg/dL Adrenal panel 12/25/16 Range/Units 07:03 Sodium 137 (136-145) mEq/L Potassium 3.7 (3.5-4.5) mEq/L Chloride 108 (98-109) mEq/L Carbon Dioxide 15 L (19-29) mEq/L BUN 13 (8-26) mg/dL Creatinine 0.80 (0.72-1.25) mg/dL Glucose 78 (70-99) mg/dL Calcium 8.5 L (8.6-10.8) mg/dL - VTE Documentation of Mechanical Device: Intermittent pneumatic compression device Consult Discharge Plan - Plan Referrals: Stephane Askew DO [Primary Care Provider] - <Jose Lamar - Last Filed: 12/25/16 16:37> Date of Encounter: 12/25/16 - Assessment and Plan (1) Abdominal pain Current Visit: Yes Status: Acute Qualifiers: Abdominal location: generalized Qualified Code(s): R10.84 - Generalized abdominal pain Objective Vital Signs - Last 8 Hours Temp Pulse Resp BP Pulse Ox 12/25/16 15:21 97.6 F 87 18 125/59 96 12/25/16 13:53 97.6 F 88 14 153/71 94 L 12/25/16 10:00 98.6 F 71 15 175/80 95 Intake and Output 12/25/16 12/25/16 12/25/16 07:59 15:59 23:59 Intake Total 325 / 325 1750 / 1750 Output Total 400 / 400 350 / 350 Balance -75 / -75 1400 / 1400 Intake: IV Fluids 325 / 325 1000 / 1000 0.9 % Sodium Chloride 1, 325 / 325 1000 / 1000 000 ML @ 100 mls/hr IVC . Q10H [facility] Rx#:[id number] Oral 0 / 0 750 / 750 Output: Urine 400 / 400 350 / 350 Other: Meal NPO Lunch Percent of Meal Consumed 100% Weight 56.08 kg Blood Glucose* 88 81 Patient Weight 12/25/16 23:59 Weight 56.08 kg - Labs 12/25/16 07:03 12/25/16 07:03 Diabetes panel 12/25/16 Range/Units 07:03 Sodium 137 (136-145) mEq/L Potassium 3.7 (3.5-4.5) mEq/L Chloride 108 (98-109) mEq/L Carbon Dioxide 15 L (19-29) mEq/L BUN 13 (8-26) mg/dL Creatinine 0.80 (0.72-1.25) mg/dL Glucose 78 (70-99) mg/dL Calcium 8.5 L (8.6-10.8) mg/dL Calcium panel 12/25/16 Range/Units 07:03 Calcium 8.5 L (8.6-10.8) mg/dL Pituitary panel 12/25/16 Range/Units 07:03 Sodium 137 (136-145) mEq/L Potassium 3.7 (3.5-4.5) mEq/L Chloride 108 (98-109) mEq/L Carbon Dioxide 15 L (19-29) mEq/L BUN 13 (8-26) mg/dL Creatinine 0.80 (0.72-1.25) mg/dL Glucose 78 (70-99) mg/dL Calcium 8.5 L (8.6-10.8) mg/dL Adrenal panel 12/25/16 Range/Units 07:03 Sodium 137 (136-145) mEq/L Potassium 3.7 (3.5-4.5) mEq/L Chloride 108 (98-109) mEq/L Carbon Dioxide 15 L (19-29) mEq/L BUN 13 (8-26) mg/dL Creatinine 0.80 (0.72-1.25) mg/dL Glucose 78 (70-99) mg/dL Calcium 8.5 L (8.6-10.8) mg/dL - Attending Attestation I examined this patient and my medical decision-making was reviewed with the OCCUPATIONAL NURSE/PA/Advanced Practice Nurse/Resident Physician. I agree with the documented findings, disposition and treatment plan as described except to the extent set forth below. Jose Lamar MD FACS
[2016-12-25] MEDS: 0.9 % Sodium Chloride 1,000 ML IV SCH (19:37)
[2016-12-26] MEDS: *HR* Heparin 5,000 UNIT/ML VIAL SQ SCH (06:22)
[2016-12-26] MEDS: 0.9 % Sodium Chloride 1,000 ML IVC SCH (08:18)
[2016-12-26] MEDS: Pantoprazole 40 MG VIAL IVP SCH (08:18)
[2016-12-26] MEDS: Nicotine 14 MG PATCH.TD24 TD SCH (08:18)
[2016-12-26 11:15] VITALS: BP 140/73
--- NOTE | 2016-12-26 14:52 | Discharge Summary ---
<Lissett Clinton Laurent - Last Filed: 12/26/16 14:52> Date of Encounter: 12/26/16 Time of Encounter: 14:45 - Discharge Diagnosis (1) Small bowel obstruction Priority: Primary Status: Resolved (2) Malnutrition Priority: Secondary Status: Chronic - Discharge Medications Home Medications: Atorvastatin [Lipitor] 40 mg PO HS 12/23/16 [History] Citalopram [CeleXA] 20 mg PO DAILY 12/23/16 [History] Clopidogrel [Plavix] 75 mg PO DAILY 12/23/16 [History] Lansoprazole [Prevacid] 30 mg PO DAILY 12/23/16 [History] Latanoprost [Xalatan] 1 drop OP QPM 12/23/16 [History] Lisinopril/Hydrochlorothiazide [Zestoretic 10-12.5 mg Tablet] 1 each PO DAILY [History] Metoprolol [Lopressor] 25 mg PO BID 12/23/16 [History] Timolol Maleate 0.25% 1 drop OP DAILY 12/23/16 [History] Tizanidine HCl 4 mg PO HS PRN 12/23/16 [History] Allergies/Adverse Reactions: Allergies No Known Allergies Allergy (Verified 12/23/16 07:41) General Surgery Exam Initial Vital Signs Temp Pulse Resp BP Pulse Ox 97.7 F 56 20 156/85 99 12/22/16 19:32 12/22/16 19:32 12/22/16 19:32 12/22/16 19:32 12/22/16 19:32 - General physical appearance well developed, no distress - Eyes normal ocular movement - ENT normal mucosa, atraumatic, normocephalic - Neck trachea midline - Respiratory normal respiratory effort, clear to auscultation - Cardiovascular Cardiovascular exam: Present: RRR - Abdomen Abdomen general surgery: Present: bowel sounds present, soft, non tender - Integumentary Integumentary general surgery: Present: warm and dry - Neurologic Present: CN 2-12 grossly intact - Psychiatric Psychiatric general surgery: Present: A&Ox3 Date of admission: 12/22/16 22:47 Primary care physician: Boogie Chen Consults: 12/23/16 00:34 Consult to Nutrition [CONS] Routine Comment: Consulting Provider: NUTRITION Reason for Dietary Consult: MST Score Discharging clinician: Jose Lamar ([facility]) Anticipated date of discharge: 12/26/16 - Patient Status Disposition: Home, Self-Care Condition: Good Functional capacity at discharge: independent ambulation Overall status at discharge: patient is progressing back to baseline - Discharge Instructions Instructions: Bowel Obstruction (DC) Follow Up With: Stephane Askew DO [Primary Care Provider] - 01/05/17 12:00 pm (1 week hospital follow-up) - Diet and Activity Activity: increase activity as tolerated Diet: advance to your usual diet - Hospital Course Hospital course: Mr. Knox is a 51 year old male who presented to the hospital with complaints of abdominal pain with associated nausea and vomiting. He did have a CT scan which showed concerns for a small bowel obstruction. The patient was treated with conservative measures including: bowel rest, IV fluids and supportive care. He did have a small bowel follow through complete which showed slow transit of contrast into the colon. The contrast did reach the colon and the patient began to have return of bowel function. He was started on clear liquids. He tolerated this well and was advanced to a regular diet. He is currently tolerating a regular diet. His vital signs are stable and he is afebrile. We will begin discharge planning to home and plan for outpatient follow-up with his PCP. - Time Spent with Patient Total time spent providing and/or coordinating discharge services: Less than 30 minutes Labs on day of discharge: Labs from last 24 hours 12/26/16 12/25/16 12/25/16 05:21 23:14 17:23 POC Glucose 92 H 97 H 85 12/25/16 12/25/16 10:42 05:35 POC Glucose 81 88 - Impressions ITS Impressions Small Bowel X-Ray 12/24/16 07:12 IMPRESSION: There is marked delay of small bowel transit time, concerning for partial small bowel obstruction. Contrast has not reached the colon at 9 hours. Follow-up KUB recommended in the morning to assess for contrast progression. D/ / 12/24/2016 18:56:08 Travis Jones MD / ileana Interpreting Provider: Travis Jones MD X-Ray 12/25/16 07:08 IMPRESSION: Mildly dilated loops of small bowel measuring up to 3.3 cm. Oral contrast reaches the transverse colon. Findings may represent either mild ileus or partial small bowel obstruction. The former is more favored. D/ / Alexia Alvarez MD / Alexia Alvarez MD Interpreting Provider: Alexia Alvarez MD - Attending Attestation I examined this patient and my medical decision-making was reviewed with the METAL DRESSER/PA/Advanced Practice Nurse/Resident Physician. I agree with the documented findings, disposition and treatment plan as described except to the extent set forth below. <Jose Lamar T - Last Filed: 12/29/16 09:00> Date of Encounter: 12/29/16 - Discharge Diagnosis (1) Abdominal pain Status: Acute Qualifiers: Abdominal location: generalized Qualified Code(s): R10.84 - Generalized abdominal pain General Surgery Exam Initial Vital Signs Temp Pulse Resp BP Pulse Ox 97.7 F 56 20 156/85 99 12/22/16 19:32 12/22/16 19:32 12/22/16 19:32 12/22/16 19:32 12/22/16 19:32 Date of admission: 12/22/16 22:47 Primary care physician: Boogie Chen Consults: 12/23/16 00:34 Consult to Nutrition [CONS] Routine Comment: Consulting Provider: NUTRITION Reason for Dietary Consult: MST Score - Hospital Course Hospital course: Mr. Knox is a 51 year old male - Time Spent with Patient Total time spent providing and/or coordinating discharge services: - Impressions ITS Impressions Small Bowel X-Ray 12/24/16 07:12 IMPRESSION: There is marked delay of small bowel transit time, concerning for partial small bowel obstruction. Contrast has not reached the colon at 9 hours. Follow-up KUB recommended in the morning to assess for contrast progression. D/ / 12/24/2016 18:56:08 Travis Jones MD / ileana Interpreting Provider: Travis Jones MD X-Ray 12/25/16 07:08 IMPRESSION: Mildly dilated loops of small bowel measuring up to 3.3 cm. Oral contrast reaches the transverse colon. Findings may represent either mild ileus or partial small bowel obstruction. The former is more favored. D/ / Alexia Alvarez MD / Alexia Alvarez MD Interpreting Provider: Alexia Alvarez MD - Attending Attestation Jose Covington MD FACS
== END 2016-12-26 16:15 | disposition home or self-care (01) | DRG 247 ==
LOC: EMEROO 19:21 → 3ANU 22:47
PROVIDERS: ADMIT Surgery; ATTEND Surgery